=== PATIENT | male | born 1945 | race Caucasian/White ===

== ENCOUNTER 2024-04-12 08:03 | Day surgery (SDC) | payer MEDICARE, OTHER, SELFPAY | END 2024-04-12 10:04 | disposition home or self-care (01) | LOC: CATH 08:03 | PROVIDERS: ATTENDING PHYSICIAN Internal Medicine Cardiovascular Disease; FAMILY PHYSICIAN Family Medicine; OTHER PHYSICIAN Internal Medicine Cardiovascular Disease | DX: I48.91 Unspecified atrial fibrillation (principal); I34.0 Nonrheumatic mitral (valve) insufficiency | CPT/HCPCS: 93312; 93320; 93325; 92960; 93005 ==